=== PATIENT | male | born 1990 | race Two or more races ===

== ENCOUNTER 2018-05-24 21:32 | Emergency (ER) | payer MEDICAID ==
[~2018-05-24] VITALS: Ht 170.2 cm; Wt 77.1 kg
[2018-05-24] MEDS ORDERED: DICL75TA5 PO (21:53)
[2018-05-24] MEDS ORDERED: predniSONE 20 MG TABLET ONE (22:07)
[2018-05-24] MEDS ORDERED: diphenhydrAMINE 50 MG CAPSULE ONE (22:07)
[2018-05-24] MEDS ORDERED: EPINEPHRINE 1 MG/1 ML AMP ONE (22:07)
[2018-05-24] MEDS ORDERED: FAMOTIDINE 20 MG TABLET ONE (22:07)
[2018-05-24] MEDS: EPINEPHRINE 1 MG/1 ML AMP SQ ONE (22:09)
[2018-05-24] MEDS: FAMOTIDINE 20 MG TABLET PO ONE (22:10)
[2018-05-24] MEDS: diphenhydrAMINE 50 MG CAPSULE PO ONE (22:10)
[2018-05-24] MEDS: predniSONE 20 MG TABLET PO ONE (22:10)
--- NOTE | 2018-05-24 22:37 | NUR ---
Patient discharged to home in stable conditon. Written and verbal after care instructions given. Patient verbalizes understanding of instructions. Ambulated from ER with stable gait, all belongings with patient.
[2018-05-24 22:39] VITALS: BP 130/82
[2018-05-27] MEDS ORDERED: PRED20TA PO (15:36)
[2018-05-27] MEDS ORDERED: MOME17SP BNOSTRILS (15:36)
[2018-05-27] MEDS ORDERED: CETI-102 PO (15:36)
[2018-05-27] MEDS ORDERED: CEFU500T66 PO (15:36)
== END 2018-05-24 22:39 | disposition home or self-care (01) ==
LOC: ER 21:32
DX: T78.3XXA Angioneurotic edema, initial encounter (principal); Z79.899 Other long term (current) drug therapy
CPT/HCPCS: 96372; 99284; J0171; J7512; Q0163; A4663

== ENCOUNTER 2018-05-26 13:32 | Inpatient (IN) | payer BC, MEDICAID ==
[~2018-05-26] VITALS: Ht 170.2 cm; Wt 72.6 kg
[~2018-05-26 13:32] MED LIST: DICL75TA5 PO
--- NOTE | 2018-05-26 13:56 | NUR ---
DR Chávez at the bedside for MSE.
--- NOTE | 2018-05-26 13:56 | NUR ---
Per during MSE pt stated he had an episode of aphasia and blurry vision at 1200 today that lasted for approx 5-10 mins.
--- NOTE | 2018-05-26 14:02 | NUR ---
Code Stroke activated per 's order.
--- NOTE | 2018-05-26 14:08 | NUR ---
Called [facility], requested information given to Dr.Okon Alfonzo to call back.
[2018-05-26 14:14] LABS: BASOPHILS # (AUTO) 0.1 K/uL (0.0-8.0); EOSINOPHILS # (AUTO) 0.3 K/uL (0.0-0.7); EOSINOPHILS % (AUTO) 3.7 % (0.0-7.0); HEMATOCRIT 42.3 % (36.7-47.1); HEMOGLOBIN 14.9 g/dL (12.5-16.3); LYMPHOCYTES # (AUTO) 2.3 K/uL (20.0-40.0); LYMPHOCYTES % (AUTO) 30.3 % (20.5-51.5); MEAN CORPUSCULAR HEMOGLOBIN 31.2 uug (23.8-33.4); MEAN CORPUSCULAR HGB CONC 35 g/dL (32.5-36.3); MEAN CORPUSCULAR VOLUME 88.7 fL (73.0-96.2); MONOCYTES # (AUTO) 0.5 K/uL (2.0-10.0); MONOCYTES % (AUTO) 7.1 % (0.0-11.0); NEUTROPHILS # (AUTO) 4.5 K/uL (1.8-8.9); NEUTROPHILS % (AUTO) 57.9 % (38.5-71.5); PLATELET COUNT (AUTO) 248 K/uL (152-348); RED BLOOD CELL COUNT(AUTO) 4.76 MIL/uL (4.06-5.63); WHITE BLOOD COUNT (AUTO) 7.7 K/uL (3.6-10.2)
[2018-05-26] MEDS ORDERED: SWABABLE VALVE TRANSFER SET EA MC ONE (14:14)
[2018-05-26] MEDS ORDERED: IV NORMAL SALINE 250 ML IV ONE (14:14)
[2018-05-26] MEDS ORDERED: IOHEXOL 350 100 ML INFUS..BTL ONE (14:14)
[2018-05-26] MEDS ORDERED: IV NORMAL SALINE 1000 ML BAG IV ONE (14:15)
--- NOTE | 2018-05-26 14:15 | NUR ---
speaking with (Neuro) via telephone.
[2018-05-26 14:25] LABS: CREATININE 1.1 mg/dL (0.6-1.3); POTASSIUM 3.5 mmol/L (3.5-5.1)
[2018-05-26 14:39] LABS: BILIRUBIN,DIRECT 0.1 mg/dL (0.0-0.2); BILIRUBIN,TOTAL 0.5 mg/dL (0.2-1.0); TOTAL PROTEIN, SERUM 8.1 g/dL (6.4-8.2)
[2018-05-26] MEDS ORDERED: ASPIRIN 325 MG TABLET PO ONE (14:45)
[2018-05-26] MEDS ORDERED: ASPIRIN 325 MG TABLET ONE (14:45)
[2018-05-26] MEDS ORDERED: ONDANSETRON 4 MG/2 ML VIAL IV PRN (17:15)
[2018-05-26] MEDS ORDERED: SUMATRIPTAN SUCCINATE 50 MG TABLET PO ONE (17:15)
[2018-05-26] MEDS ORDERED: Z GUARD REMEDY PASTE 57 GM TUBE TOP PRN (17:15)
[2018-05-26] MEDS ORDERED: MORPHINE SULFATE 4 MG/1 ML DISP.SYRIN IV PRN (17:15)
[2018-05-26] MEDS ORDERED: ZOLPIDEM 5 MG TABLET PO PRN (17:15)
[2018-05-26] MEDS ORDERED: MORPHINE SULFATE 2 MG/1 ML DISP.SYRIN IV PRN (17:15)
[2018-05-26] MEDS ORDERED: ACETAMINOPHEN 325 MG TABLET PO PRN (17:15)
[2018-05-26] MEDS: IV NS 1000 ML 1,000 ML IV PRN (17:58)
[2018-05-26 18:10] VITALS: BP 113/70
--- NOTE | 2018-05-26 18:30 | NUR ---
PATIENT ADMITTED AWAKE, ALERT ORIENTED X4. AMBULATORY, DENIES PAIN. NIHSS SCALE COMPLETED, WITH SCORE OF 0. STROKE/TIA INFORMATION GIVEN TO PATIENT. ADMISSION PROTOCOL FOLLOWED, ANSWERED PATIENT QUESTIONS. IV INTACT WITH FLUIDS RUNNING ORDERED. 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
[2018-05-26 19:21] VITALS: BP 115/75
--- NOTE | 2018-05-26 20:00 | NUR ---
RECEIVED PATIENT AWAKE IN BED WITH FAMILY AT BEDSIDE. PATIENT IS A/O X4. DENIES ANY PAIN OR DISCOMFORT. NO RESP. DISTRESS NOTED. VS WNL. ON TELE SR. IVF INFUSING WELL TO RIGHT AC #18 GAUGE. NEURO-CHECKS WNL. CALL LIGHT IN REACH. ALL NEEDS ATTENDED. WILL CONTINUE TO MONITOR AND ASSESS.
[2018-05-26 23:15] VITALS: BP 118/62
[2018-05-27 03:13] VITALS: BP 118/65
--- NOTE | 2018-05-27 06:12 | NUR ---
PATIENT RESTING IN BED. AT BEDSIDE. SLEPT WELL. ON TELE SR. VSS. DENIES PAIN. CALL LIGHT IN REACH. ALL NEEDS ATTENDED. WILL CONTINUE TO MONITOR.
[2018-05-27 06:35] LABS: BASOPHILS % (AUTO) 0.5 % (0.0-2.0); EOSINOPHILS # (AUTO) 0.3 K/uL (0.0-0.7); EOSINOPHILS % (AUTO) 5.3 % (0.0-7.0); HEMOGLOBIN 14.9 g/dL (12.5-16.3); LYMPHOCYTES # (AUTO) 1.6 K/uL (20.0-40.0); LYMPHOCYTES % (AUTO) 24.9 % (20.5-51.5); MEAN CORPUSCULAR HEMOGLOBIN 31.7 uug (23.8-33.4); MEAN CORPUSCULAR HGB CONC 36 g/dL (32.5-36.3); MEAN CORPUSCULAR VOLUME 89.2 fL (73.0-96.2); MONOCYTES # (AUTO) 0.5 K/uL (2.0-10.0); MONOCYTES % (AUTO) 7.8 % (0.0-11.0); NEUTROPHILS # (AUTO) 3.9 K/uL (1.8-8.9); NEUTROPHILS % (AUTO) 61.5 % (38.5-71.5); PLATELET COUNT (AUTO) 226 K/uL (152-348); RED BLOOD CELL COUNT(AUTO) 4.71 MIL/uL (4.06-5.63); WHITE BLOOD COUNT (AUTO) 6.4 K/uL (3.6-10.2)
[2018-05-27 06:51] LABS: CARBON DIOXIDE 29 mmol/L (21-32); CHLORIDE 106 mmol/L (98-107); CREATININE 0.7 mg/dL (0.6-1.3); GLUCOSE 94 mg/dL (74-106); MAGNESIUM 1.8 mg/dL (1.8-2.4); PHOSPHOROUS 3.8 mg/dL (2.5-4.9); POTASSIUM 3.8 mmol/L (3.5-5.1); UREA NITROGEN, BLOOD 13 mg/dL (7-18)
[2018-05-27] MEDS: IV NS 1000 ML 1,000 ML IV PRN (07:25)
[2018-05-27 11:04] VITALS: BP 109/69
[2018-05-27] MEDS ORDERED: BUTALB/ACETAMINOPHEN/CAFFEINE TABLET PO PRN (11:30)
[2018-05-27 15:00] VITALS: BP 112/62
[2018-05-27] MEDS ORDERED: CETI-102 PO (15:36)
[2018-05-27] MEDS ORDERED: PRED20TA PO (15:36)
[2018-05-27] MEDS ORDERED: MOME17SP BNOSTRILS (15:36)
[2018-05-27] MEDS ORDERED: CEFU500T66 PO (15:36)
--- NOTE | 2018-05-27 18:01 | NUR ---
patient discharged home per Stas SANCHEZ order. steph SANCHEZ confirmed discharge orders althought pending lab results. Steph SANCHEZ said will follow up with patient as outpatient and patient verbalize to follow up within 5 days. Patient is alert and oriented x4.Patient denies any pain or discomfort at this time. Patient received discharge instructions and exitcare package. Patient verbalizes understanding of discharge instructions. IV and ID band was removed. Patient escorted to the lobby with [employer] for safety precautions.
[2018-05-28 15:07] LABS: *ANTI-SCLERODERMA-70 AB <0.2 AI (0.0-0.9); *SJOGREN'S ANTI-SS-A <0.2 AI (0.0-0.9); *SJOGREN'S ANTI-SS-B <0.2 AI (0.0-0.9); *SMITH ANTIBODIES <0.2 AI (0.0-0.9); ANTI-DNA(DS) AB, QN <1 IU/mL (0-9)
[2018-05-31 05:06] LABS: COMPLEMENT, C3 SERUM 142 mg/dL (82-167); COMPLEMENT, C4 SERUM 26 mg/dL (14-44)
== END 2018-05-27 18:10 | disposition home or self-care (01) | DRG 54 ==
LOC: ER 13:34 → TELE 16:23 → MED 05-27 11:25
PROVIDERS: ADMIT Nurse Practitioner Acute Care; ATTEND Nurse Practitioner Acute Care
DX: G43.109 Migraine with aura, not intractable, without status migrainosus (principal); D89.89 Other specified disorders involving the immune mechanism, not elsewhere classified; J32.8 Other chronic sinusitis
CPT/HCPCS: 36415; 70030-TC; 70450; 70496; 71045; 83520; 83735; 84100; 84443; 85025; 85651; 85730; 86038; 86160; 86162; 86256; 93005; A4663; G0378; J2270; J7030; J7050; Q9967

== ENCOUNTER 2018-06-07 22:37 | Emergency (ER) | payer BC, MEDICAID ==
[~2018-06-07] VITALS: Ht 170.2 cm; Wt 77.1 kg
[~2018-06-07 22:37] MED LIST changes: +CEFU500T66 PO; +CETI-102 PO; -DICL75TA5 PO; +MOME17SP BNOSTRILS; +PRED20TA PO
--- NOTE | 2018-06-07 23:01 | NUR ---
Pt ambulated in ER with the c/o pruritus and rash that started on head and face and spread to body this morning. Pt states that he took 25 mg of benadryl PO. No s/s of respiratory distress noted at this time. Safe environment implemented.
[2018-06-08] MEDS ORDERED: EPINEPHRINE 1 MG/1 ML AMP SQ ONE (00:30)
[2018-06-08] MEDS ORDERED: FAMOTIDINE 20 MG TABLET PO ONE (00:30)
[2018-06-08] MEDS ORDERED: diphenhydrAMINE 50 MG CAPSULE PO ONE (00:30)
[2018-06-08] MEDS ORDERED: predniSONE 10 MG TABLET PO ONE (00:30)
[2018-06-08] MEDS ORDERED: predniSONE 20 MG TABLET ONE (00:37)
[2018-06-08] MEDS ORDERED: FAMOTIDINE 20 MG TABLET ONE (00:37)
[2018-06-08] MEDS ORDERED: EPINEPHRINE 1 MG/1 ML AMP ONE (00:37)
[2018-06-08] MEDS ORDERED: diphenhydrAMINE 50 MG CAPSULE ONE (00:37)
--- NOTE | 2018-06-08 02:20 | NUR ---
Patient discharged to home in stable conditon. Written and verbal after care instructions given. Patient verbalizes understanding of instructions.
[2018-06-08 02:26] VITALS: BP 115/80
== END 2018-06-08 02:28 | disposition home or self-care (01) ==
LOC: ER 22:37
DX: L50.9 Urticaria, unspecified (principal); Z79.899 Other long term (current) drug therapy
CPT/HCPCS: 96372; 99284; J0171; J7512; Q0163; A4663